=== PATIENT | male | born 1965 ===

== ENCOUNTER 2021-11-28 05:32 | Day surgery (SDC) | payer OTHER ==
[~2021-11-28 05:32] MED LIST: IRBESARTAN-HCT1 EAC1
[2021-11-28] MEDS ORDERED: PERCOCET 5-3251 EACH PO (10:40)
[2021-11-28] MEDS ORDERED: NEURONTIN600 M1 PO (10:41)
[2021-11-28] MEDS ORDERED: POLY119PG PO (10:41)
== END 2021-11-28 13:20 | disposition home or self-care (01) ==
LOC: CIR.AMB 05:32
PROVIDERS: ATTEND Surgery
DX: K40.90 Unilateral inguinal hernia, without obstruction or gangrene, not specified as recurrent (principal); Z88.2 Allergy status to sulfonamides; I10 Essential (primary) hypertension; N40.0 Benign prostatic hyperplasia without lower urinary tract symptoms
CPT/HCPCS: 49650; C1781

== ENCOUNTER 2021-11-28 16:28 | Emergency (ER) | payer OTHER ==
[~2021-11-28] VITALS: Ht 175.3 cm; Wt 98.9 kg
[~2021-11-28 16:28] MED LIST changes: +NEURONTIN600 M1 PO; +PERCOCET 5-3251 EACH PO; +POLY119PG PO
== END 2021-11-28 19:48 | disposition home or self-care (01) ==
LOC: ER 16:28
DX: R55 Syncope and collapse (principal); K40.90 Unilateral inguinal hernia, without obstruction or gangrene, not specified as recurrent